=== PATIENT | female | born 2000 ===

== ENCOUNTER 2022-04-12 08:41 | Inpatient (IN) | payer SELFPAY ==
[2022-04-12] MEDS ORDERED: MINERAL OIL 30 ML ORAL LIQD PO PRN (12:13)
[2022-04-12] MEDS ORDERED: METHYLERGONOVINE MALEATE 0.2 MG/ML VIAL IM PRN (12:13)
[2022-04-12] MEDS ORDERED: fentaNYL 100 MCG/2 ML INJ IV PRN (12:13)
[2022-04-12] MEDS ORDERED: CARBOPROST TROMETHAMINE 250 MCG/1 ML INJ IM PRN (12:13)
[2022-04-12] MEDS ORDERED: OXYTOCIN 10 UNIT/1 ML INJ IM PRN (12:13)
[2022-04-12] MEDS ORDERED: LOPERAMIDE 2 MG CAP PO PRN (12:13)
[2022-04-12] MEDS ORDERED: ePHEDrine SULFATE 50 MG/1 ML INJ IV PRN (12:13)
[2022-04-12] MEDS ORDERED: ONDANSETRON 4 MG/2 ML INJ IV PRN (12:13)
[2022-04-12] MEDS ORDERED: LIDOCAINE (2%) 20 MG/1 ML VIAL 20 ML MDV INFILTRATI ONE (12:13)
[2022-04-12] MEDS ORDERED: miSOPROStol 200 MCG TAB PR PRN (12:13)
[2022-04-12] MEDS ORDERED: ACETAMINOPHEN 325 MG TAB PO PRN (12:13)
[2022-04-12] MEDS ORDERED: NalbUPHINE 10 MG/1 ML INJ IV PRN (12:13)
[2022-04-12] MEDS ORDERED: PROMETHAZINE 25 MG TAB PO PRN (12:13)
[2022-04-12] MEDS ORDERED: TERBUTALINE 1 MG/1 ML INJ SUB-Q PRN (12:13)
--- NOTE | 2022-04-12 12:22 | History and Physical Report ---
History of Present Illness Date of examination: 04/12/22 Chief complaint: scheduled induction due to post dates History of present illness: at 41.0wks by LMP c/w U/S and care at [facility]. Pt admits to movement, denies vag bleed, LOF or headache or feeling ctx. Past History Past Medical History: other (morbid obesity) Past Surgical History: no surgical history Social history: no significant social history - Obstetrical History Expected Date of Delivery: 04/05/22 Actual Gestation: 41 Week(s) 0 Day(s) : 1 Number of Living Children: 0 Medications and Allergies Allergies Allergy/AdvReac Type Severity Reaction Status Date / Time No Known Allergies Allergy Verified 04/12/22 09:56 Home Medications Medication Instructions Recorded Confirmed Last Taken Type Tablet 04/12/22 1 Day Ago History ~04/11/22 1 tab Review of Systems All systems: negative - Vital Signs Vital signs: Vital Signs Pulse Pulse Ox 80 97 04/12/22 09:17 04/12/22 09:17 Temp Pulse Resp BP Pulse Ox 98.2 F 78 16 124/70 98 04/12/22 09:38 04/12/22 12:12 04/12/22 09:38 04/12/22 11:23 04/12/22 12:12 - Physical Exam Breasts: Positive: deferred Cardiovascular: Regular rate Lungs: Positive: Normal air movement Abdomen: Positive: soft (obese) Genitourinary (Female): Positive: normal external genitalia Vagina: Positive: normal moisture Uterus: Positive: enlarged (but smaller than expected) Extremities: Positive: normal - Obstetrical FHR: category 1 Uterine Contraction Monitor Mode: External Cervical Dilatation: 0 Cervical Effacement Percentage: 0 station: -3 Uterine Contraction Pattern: Absent Results All other labs normal. Assessment and Plan postterm induction with unfavorable cervix 1. Admit to labor and delivery and cytotec induction 2. Official of report for GBS needed and u/s to comfirm dates 3. wire drawing machine tender used to explain the induction process over the next 3- 4days. Hopeful for vaginal delivery
[2022-04-12 12:43] LABS: Hematocrit 29.9 % (30.3-42.9); Hemoglobin 9.5 gm/dl (10.1-14.3); Mean Corpuscular HGB Conc 32 % (30-34); Mean Corpuscular Volume 75 fl (79-97); Platelet Count 216 K/mm3 (140-440); Red Cell Distribution Width 16.5 % (13.2-15.2)
[2022-04-12] MEDS ORDERED: OXYTOCIN DRIP 30 UNITS/500 ML BAG IV SCH ×2 (13:00)
[2022-04-12] MEDS ORDERED: PENICILLIN G POTASSIUM 5 MIL.UNITS in SODIUM CHLORIDE 0.9% 50 ML IV ONE (14:00)
[2022-04-12] MEDS: miSOPROStol 25 MCG TAB PO SCH ×2 (15:00→19:15)
[2022-04-12] MEDS: LACTATED RINGERS 1,000 ML IV SCH (16:52)
[2022-04-13] MEDS: miSOPROStol 25 MCG TAB PO SCH (00:30)
[2022-04-13] MEDS: LACTATED RINGERS 1,000 ML IV SCH (00:33)
[2022-04-13] MEDS ORDERED: miSOPROStol 25 MCG TAB PO SCH (04:30)
[2022-04-13] MEDS ORDERED: DINOPROSTONE 10 MG VAG SUPP VG ONE (12:54)
--- NOTE | 2022-04-13 20:51 | Event Note ---
Date: 04/13/22 pt has received all cytotec and currently getting cervidil for cervical ripening. FHR category I per nurse report and irregular ctx. Will continue present mgt. Hopeful for vaginal delivery.
--- NOTE | 2022-04-14 10:22 | Event Note ---
Date: 04/14/22 (1015) @41.2 wks gestation pt of [place] , IOL for post dates. Cat 1 tracing, denies any pain, spouse at bs. VE: /-3 mid position will restart Cytotec 25mcg sublingual or buccal x4 doses.
[2022-04-14] MEDS: miSOPROStol 25 MCG TAB PO SCH ×2 (12:48→17:04)
--- NOTE | 2022-04-14 21:25 | Event Note ---
Date: 04/14/22 (2114) VE: 70-3, cat 1 tracing[facility].
[2022-04-14] MEDS: LACTATED RINGERS 1,000 ML IV SCH (21:34)
[2022-04-15] MEDS: BUTORPHANOL 2 MG/1 ML INJ IV PRN ×2 (00:22→03:10)
--- NOTE | 2022-04-15 04:17 | Event Note ---
Date: 04/15/22 (0340) AROM, no fluid noted, VE /-2, IUPC placed, Pt desires epidural.
[2022-04-15] MEDS ORDERED: LIDOCAINE (2%) 20 MG/1 ML VIAL 20 ML MDV INFILTRATI ONE ×2 (06:15→06:26)
[2022-04-15] MEDS ORDERED: miSOPROStol 200 MCG TAB PR PRN (07:15)
--- NOTE | 2022-04-15 07:24 | Procedure Note ---
OB Delivery Note - Delivery Date of Delivery: 04/15/22 (0610) Surgeon: KASI BOND Estimated blood loss: 500cc - Vaginal Delivery presentation: vertex Delivery position: OA Delivery induction: none Delivery augmentation: rupture of membranes Delivery monitor: external FHT, internal FHT Route of delivery: Delivery placenta: spontaneous Delivery cord: 3 umbilical vessels Episiotomy: none Delivery laceration: 2nd degree (perineal lac extended 6-7 cm ) Delivery repair: chromic (by Dr. Dewitt) Anesthesia: local Delivery comments: Hospital day 3, 21 YO female presents to the hospital for IOL due to post dates. After Cytotec, cervidil, pitocin and AROM. She became complete, w/o epidural, was given stadol x2 doses. She delivered a viable baby BOY at 0612 on 04/15/22, 8/9, 6lbs,14oz. Placenta delv spontaneously at 0612.Infant placed on maternal chest, delayed cord clamping, FOB cut the cord. [id number]. Dr. Dewitt was called for vaginal repair. 2nd degree vaginal extended 6-7 cm , Right periurethral, and Left labial. both mother and infant stable.
--- NOTE | 2022-04-15 07:38 | Event Note ---
Date: 04/15/22 I went to see pt after CN Roz performed delivery and CN states that pt has extensive laceration with active bleed. I therefore gowned and evaluated pt with anal sphincter intact however with perineal laceration extending cephalad approximately 6-7cm and rectovag exam did not show gloved finger thru vaginal mucosa. Pt also had left labial laceration M shaped that extended to the left side of vaginal wall less than 2cm inward. Pt also had 2nd degree perineal laceration. Pt had no epidural therefore pt was given 100mg IV fentanyl and local 15cc of 2% lidocaine with good effect. Midline extension of perineal laceration repaired with 2-0 chromic running locked and then left labial laceration irreg shaped repaired with 2-0 chromic subcutaneously then continued to running locked suture as it entered vagina then the remainder of perineal laceration repaired with 2-0 chromic running locked. Pt also had a right periurethral laceration repaired with 2-0 chromic subcutaneously with good hemostasis and scruggs cath placed to gravity x6hrs. Bimanual exam done and multiple clots expressed. pt therefore also given cytotec 800mcg per rectum in addition to IV pitocin. Mom and baby doing well. EBL 500cc and Pt given ancef 2gm IVPB with extensive repair and possible contamination.
[2022-04-16] MEDS ORDERED: LANOLIN/ZINC/DIMETHICONE (LANSINOH) 7 GM TP PRN ×2 (08:09)
[2022-04-16] MEDS ORDERED: BENZOCAINE/MENTHOL 20/0.5% TOP SPRAY 56 GM TP PRN (09:00)
[2022-04-16] MEDS ORDERED: IBUPROFEN 600 MG TAB PO SCH (09:00)
[2022-04-16] MEDS ORDERED: WITCH HAZEL/ GLYCERIN PAD TP PRN (09:30)
[2022-04-16] MEDS ORDERED: diphenhydrAMINE 25 MG CAP PO PRN (09:30)
[2022-04-16] MEDS ORDERED: PROMETHAZINE 25 MG TAB PO PRN (10:00)
[2022-04-16] MEDS ORDERED: PRENATAL VIT27-FE FUMARATE-FOLIC ACID VIT TAB PO SCH (10:00)
[2022-04-16] MEDS ORDERED: oxyCODONE /ACETAMINOPHEN 5-325MG TAB PO PRN (10:00)
[2022-04-16] MEDS ORDERED: PROMETHAZINE 25 MG RECT SUPP PR PRN (10:00)
[2022-04-16] MEDS ORDERED: DOCUSATE SODIUM 100 MG CAP PO SCH (10:00)
[2022-04-16] MEDS ORDERED: ONDANSETRON 4 MG/2 ML INJ IV PRN (10:00)
[2022-04-16 10:59] LABS: Hematocrit 24.7 % (30.3-42.9); Mean Corpuscular HGB Conc 33 % (30-34); Mean Corpuscular Volume 76 fl (79-97); Platelet Count 160 K/mm3 (140-440); Red Blood Count 3.24 M/mm3 (3.65-5.03); Red Cell Distribution Width 17.2 % (13.2-15.2)
[2022-04-16 16:38] VITALS: BP 119/63
--- NOTE | 2022-04-16 18:29 | Discharge Summary ---
Providers - Providers Date of Admission: 04/12/22 08:42 Date of discharge: 04/16/22 Attending physician: MARK MALONE Primary care physician: MARK MALONE Hospitalization Reason for admission: induction of labor (post dates) Delivery: Episiotomy: none Laceration: 2nd degree (midline vaginal), other (left labial into vag wall, and right periurethral) Other procedures: none complications: none Discharge diagnosis: IUP at term delivered [place] baby: male Condition at discharge: Good Disposition: 01 HOME / SELF CARE / HOMELESS - Discharge Diagnoses (1) (normal spontaneous vaginal delivery) Status: Acute Plan - Discharge Medications Prescriptions: Docusate Sodium [Colace CAP] 100 mg PO BID #60 capsule Ferrous Sulfate [Feosol 325 MG tab] 325 mg PO TID 3 Days #90 tablet Ibuprofen [Motrin 600 MG tab] 800 mg PO Q8H #40 tablet Ascorbic Acid [Vitamin C] 500 mg PO BID #60 tablet - Provider Discharge Summary Activity: no sex for 6 weeks, no heavy lifting 4 weeks, no strenuous exercise Diet: routine Instructions: routine Additional instructions: [] Smoking cessation referral if applicable(refer to patient education folder for contact #) [] Refer to [facility] Booklet Call your doctor immediately for: * Fever > 100.5 * Heavy vaginal bleeding ( >1 pad per hour) * Severe persistent headache * Shortness of breath * Reddened, hot, painful area to leg or breast * Drainage or odor from incision. * Keep incision clean and dry at all times and follow doctor's instructions regarding bathing/showering - Follow up plan Follow up: MARK MALONE MD [Primary Care Provider] - 6 Weeks Forms: [facility] Discharge Summary
[2022-04-16] MEDS ORDERED: ASCORBIC ACID 500 MG TAB PO SCH (22:00)
[2022-04-16] MEDS ORDERED: FERROUS SULFATE 325 MG TAB PO SCH (22:00)
[2022-04-16] MEDS ORDERED: MAGNESIUM HYDROXIDE (MOM) ORAL LIQD UDC PO PRN (22:00)
== END 2022-04-16 20:00 | disposition home or self-care (01) | DRG 807 ==
LOC: LD 08:41 → TRG 08:41 → LD 08:42 → TRG 12:24 → OB 04-15 09:25
PROVIDERS: ADMIT Obstetrics & Gynecology; ATTEND Obstetrics & Gynecology
PROC: 10E0XZZ Delivery of Products of Conception, External Approach (ICD-10-PCS; principal; 2022-04-15)
PROC: 0KQM0ZZ Repair Perineum Muscle, Open Approach (ICD-10-PCS; 2022-04-15)
PROC: 10H07YZ Insertion of Other Device into Products of Conception, Via Natural or Artificial Opening (ICD-10-PCS; 2022-04-15)
PROC: 10907ZC Drainage of Amniotic Fluid, Therapeutic from Products of Conception, Via Natural or Artificial Opening (ICD-10-PCS; 2022-04-15)
DX: O48.0 Post-term pregnancy (principal); Z37.0 Single live birth; Z3A.41 41 weeks gestation of pregnancy; Z20.822 Contact with and (suspected) exposure to COVID-19; O99.214 Obesity complicating childbirth; E66.01 Morbid (severe) obesity due to excess calories; O70.1 Second degree perineal laceration during delivery
CPT/HCPCS: 36415; 85014; 85018; 85027; 86592; 86850; 86900; 86901; G0378; J3490; J0595; J2590; J3010; J7120; U0003